=== PATIENT | male | born 1975 | race Two or more races ===

== ENCOUNTER 2025-05-28 10:08 | Outpatient (AMB) | payer MEDICAID, SELFPAY ==
--- NOTE | 2025-05-28 10:54 | ORTHONT_ITS ---
Vital signs 05/28/25 11:46 Height 1.79 m Height Method Stated Weight 77.734 kg Weight Measurement Method Standing Scale BMI 24.3 BP 134/81 H Blood Pressure Source Automatic Cuff Blood Pressure Location Left Upper Arm Position Sitting Respiration 19 Pulse 79 Pulse Source Monitor Temp 98.0 F Temp Source Temporal Artery Scan Pulse Oximetry (%) 98 Oxygen Delivery Method Room Air Med/Allergies Allergies & Medications Allergies No Known Allergies Allergy (Verified 05/28/25 11:47) Medication Reconciliation Promethazine Hcl/Dextromethorphan SYRUP * (PHENERGAN DM SYRUP *) 10 tsp PO Q6HR PRN cough #120 mL 10/21/16 [Rx Confirmed 05/28/25] pseudoephedrine HCl 60 mg tablet (Sudogest) 60 mg PO [id number] PRN congestion #30 tabs 10/21/16 [Rx Confirmed 05/28/25] hydrocodone 5 mg-acetaminophen 325 mg tablet ([place]) 1 tab PO QID PRN pain #20 tabs 03/10/18 [Rx Confirmed 05/28/25] Exam Exam Patient is in no acute distress and is cooperative with the examination today. Breathing is nonlabored. Patient has a normal mood and affect. The patient has a gait that is nonantalgic Bilateral extremities were evaluated and demonstrates sensation intact to light touch. Palpable pedal pulses are present. No significant edema is present. Bilateral hips were examined. The patient has no pain with log roll of the hips. Internal rotation to 30 degrees and external rotation to 30 degrees is painless. Negative FADIR. Left knee was examined today. The left knee is in reasonable alignment. Range of motion from 0-120 degrees. Knee is stable to varus and valgus as well as AP translation with <5mm. Patient has a negative McMurrays. There is no pain with patellofemoral compression and no crepitus noted. The knee is nontender to palpation. The right knee was also examined. The right knee is in neutral alignment. Range of motion from 0-120 degrees. Knee is stable to varus and valgus as well as AP translation with <5mm. Patient has a negative McMurrays. There is no pain with patellofemoral compression and no crepitus noted. The knee demonstrates significant swelling in front of the patella consistent with prepatellar bursitis Assessment and Plan Problem List (1) Prepatellar bursitis: Status: Acute Plan: We discussed the natural history of prepatellar bursitis. We discussed rest anti-inflammatories ice and compression. The patient would like the mass drained as there is significant mass effect. Using an alcohol prep and an 18-gauge syringe, 20 cc of serosanguineous fluid was extracted from the prepatellar bursa. There is no purulence. The patient tolerated the procedure well and is happy. We discussed that this could recur and we recommend an Girish wrap and a compression dressing Office Procedures GNS Level of Care Nursing/Assessment Patient Status: Initial/New Patient Nursing Assessment/Reassesment: Medication Reconciliation, Update PMH in EMR and Vital Signs Coordination of Care: Complex Care and Chronic Disease 1-5, Education Complex Pt/Fam, Consent,records obtained, informed consent, 1 Ins Authorization, Lab and Imaging orders, Results/Orders obtained and Staff clarify orders Special Needs: Language special needs New Patient Charge New Patient Point Assignment: 1124 New Patient Point Charge: UTILIZATION MANAGEMENT UM NURSE Level 4 ([id number]) Surgical Proc/IM SQ injection Minor Surgical Procedure: Yes (ASPIRATION RIGHT KNEE) MA Intake Visit Data Collection New Patient or Established: Established Patient (seen at [facility] within 3 years) Reason for Visit:: R PATELLAR BURSITIS 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: Yes PCP or OBGYN visit in last 3 months: Yes Hx Now: No Do You Feel Safe at Home: Yes Authorities Contacted: N/A Questionairres Past Medical History Past Medical History Have you ever been diagnosed with any of the following: Subjective Visit Visit for: new patient and knee (RIGHT) Immunization / Flu Flu Vaccine in the Last 12 Months: Yes Flu Vaccine Exclusion Criteria: Already Received History of Present Illness Chief complaint: Right knee swelled HISTORY OF PRESENT ILLNESS IBhanu, have obtained verbal consent from the patient, to be recorded during this encounter which may include, but not limited to, medical history, examination, treatment plans, and relevant health information.? Patient was informed that recording will be read and reviewed by myself before inclusion in the medical chart. The patient is a 50-year-old male who presents today for evaluation of his right knee pain. He is accompanied by an studio assistant. 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 The mass has been there for 3 months. There is not significant pain but is unc omfortable . 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
[2025-05-28 11:46] VITALS: BP 134/81; PULSE 79; RESP 19; TEMP 36.7; O2SAT 98; BMI 24.3
== END 2025-05-28 11:39 | disposition home or self-care (01) ==
PROVIDERS: Supervising Provider Orthopaedic Surgery Adult Reconstructive Orthopaedic Surgery; Visit Provider Orthopaedic Surgery Adult Reconstructive Orthopaedic Surgery
DX: M70.41 Prepatellar bursitis, right knee (principal); M25.561 Pain in right knee
CPT/HCPCS: 20610; 99204; G0463